=== PATIENT | male | born 1985 | race Caucasian/White ===

== ENCOUNTER 2018-02-13 11:05 | Day surgery (SDC) | payer BC ==
[~2018-02-13] VITALS: Ht 170.2 cm; Wt 68.0 kg
--- NOTE | ~2018-02-13 | OP ---
PATIENT NAME: NUPUR JANI MEDICAL RECORD: [id number] LOCATION:[facility] ADMISSION DATE: SURGEON: NUPUR SALCEDO MD DATE OF OPERATION: 02/13/2018 PREOPERATIVE DIAGNOSIS: Medial meniscus tear of the right knee. POSTOPERATIVE DIAGNOSIS: Medial meniscus tear of the right knee. PROCEDURE: Arthroscopic partial medial meniscectomy of the right knee. SURGEON: Nupur Salcedo MD ANESTHESIA: General. INTRAOPERATIVE COMPLICATIONS: None. Please make note this was a complex tear of the posterior horn of the medial meniscus. SUMMARY OF PATHOLOGIC FINDINGS: The patient was indeed found to have a tear of the posterior horn of the medial meniscus as described on the MRI and as seen by clinical exam. OPERATIVE SUMMARY IN DETAIL: After obtaining the appropriate preoperative orthopedic surgery consent as well as anesthetic consultation, evaluation, and clearance, the patient was brought to the operating room and placed on the operating room table in supine position. After adequate general laryngeal mask airway was administered, tourniquet was placed in the proximal aspect of the patient's right lower extremity. Right lower extremity was then prepped and draped in routine sterile fashion. Leg was elevated and exsanguinated. Tourniquet was inflated to 350 mmHg. Routine inferolateral portal was established followed by superomedial portal and inferomedial portal. Diagnostic arthroscopy showed the patient to have a pristine joint with exception of the posterior horn of medial meniscus tear. This was photographed intraoperatively. Combination of meniscotomes as well as arthroscopic resector was utilized to debride the medial meniscus tear back to stable meniscal elements. Having completed this, the knee was insufflated with 30 cc of 0.25% Marcaine with epinephrine and 40 mg of Depo-Medrol. Arthroscopy portals were closed in routine interrupted fashion using 4-0 Prolene. Sterile dressings were applied. The patient was awakened and taken to recovery room in stable condition. All final needle and sponge counts were correct. TRANSINT:[id number] Voice Confirmation ID: [id number] DOCUMENT ID: [id number] NUPUR SALCEDO MD at 1422 CC: [id number] DICTATION DATE: 02/13/18 1449 OUTSIDE COLLECTOR: 02/13/18 1541 DEP [facility] [place]/13/18 [place] [id number] [place] [id number]
[~2018-02-13 11:05] MED LIST: ZYLOPRIM300 MG PO
[2018-02-13 12:07] VITALS: Ht 170.2 cm; Wt 68.0 kg
[2018-02-13] MEDS ORDERED: HYDROCODONE-APA1 TAB PO (13:58)
== END 2018-02-13 15:45 | disposition home or self-care (01) ==
LOC: D.OPS 11:05 → D.PAN 13:15 → D.OPS 13:15 → D.PAN 15:30 → D.OPS 15:45
DX: S83.241A Other tear of medial meniscus, current injury, right knee, initial encounter (principal); Z01.812 Encounter for preprocedural laboratory examination